=== PATIENT | male | born 1970 | race Caucasian/White ===

== ENCOUNTER → 2016-07-26 | Outpatient (CLI) | payer OTHER ==
--- NOTE | 2016-07-27 09:35 | RAD ---
Right hand, 3 views, 07/26/2016: History: Hand injury, pain and swelling There is a fracture of the distal fifth metacarpal. There is minimal volar angulation of the major distal fracture fragment. There is moderate overlying soft tissue swelling. No other acute fracture or dislocation is identified. IMPRESSION: Acute fracture of the distal fifth metacarpal.
== END | disposition home or self-care (01) ==
LOC: RAD 17:21
PROVIDERS: ATTEND General Practice
DX: S62.306A Unspecified fracture of fifth metacarpal bone, right hand, initial encounter for closed fracture (principal); X58.XXXA Exposure to other specified factors, initial encounter; Y93.89 Activity, other specified; Y92.89 Other specified places as the place of occurrence of the external cause; Y99.8 Other external cause status
CPT/HCPCS: 73130

== ENCOUNTER → 2017-07-06 | Outpatient (CLI) | payer OTHER ==
--- NOTE | 2017-07-06 08:49 | RAD ---
EXAM: Left knee, 2 views. HISTORY: Pain and weakness. COMPARISON: None. FINDINGS: Frontal and lateral views of the left knee are obtained. There is lateral compartment joint space narrowing and mild lateral compartment predominant tricompartmental spurring. There is medial compartment chondrocalcinosis. There is a suspected small joint effusion. IMPRESSION: 1. Mild lateral compartment predominant tricompartmental osteoarthritis of the left knee. 2. Suspected small joint effusion. Electronically signed by: Alaina Rios MD (07/06/2017 8:45 AM) [facility]
== END | disposition home or self-care (01) ==
LOC: PMG 08:26
PROVIDERS: ATTEND Physician Assistant
DX: M17.12 Unilateral primary osteoarthritis, left knee (principal); M25.462 Effusion, left knee
CPT/HCPCS: 73560

== ENCOUNTER → 2021-06-22 | Outpatient (CLI) | payer OTHER ==
--- NOTE | 2021-06-22 09:46 | RAD ---
EXAM: DUAL ENERGY X-RAY ABSORPTIOMETRY (DEXA). HISTORY: Decreased height. Osteoporosis screening. FINDINGS: The lowest measured T-score is -2.2 in the left hip, based on a bone mineral density of 0.7 41 g/cm^2. Refer to the worksheets for full detail. No comparison examinations are available. IMPRESSION: 1. Low bone mass. Bone mineral density yields a T-score between -1.0 and -2.5. Fracture risk is incre ased. 2. FRAX report: Not calculated. METHODOLOGY: Dual energy x-ray absorptiometry was performed to measure bone mineral density. The foll owing analysis is based on the 2019 Official Positions of the International Society for Clinical Dens itometry: Measurements of the hips and the average of L1-L4 are preferred. When the spine and/or hip cannot be feasibly measured or interpreted, or in the setting of hyperparathyroidism, distal radial bone minera l density may be measured. The lumbar spine T-score is based on the average bone mineral density of L1-L4. In the setting of art ifact or anatomic abnormality, some lumbar levels may be excluded, and the remaining levels used for calculation. A single lumbar level is not used for diagnosis, and if only a single level is available for assessment, another anatomic site will be used to assign a diagnosis. The hip T-score is based on the bone mineral density measurement of the femoral neck or total proxima l femur of either side, whichever is lowest. Bilateral mean values are not used for diagnosis. The forearm T-score is derived from 33% of the distal radius of the nondominant forearm. Electronically signed by: Alaina Rios MD (06/22/2021 9:44 AM) [id number]
== END ==
LOC: DXRAD 09:16
PROVIDERS: ATTEND Physician Assistant
DX: M85.88 Other specified disorders of bone density and structure, other site (principal); R29.890 Loss of height; Z79.51 Long term (current) use of inhaled steroids
CPT/HCPCS: 77080